=== PATIENT | female | born 1985 ===

== ENCOUNTER 2017-12-09 23:49 | Emergency (ER) | payer MEDICAID ==
[2017-12-10] MEDS ORDERED: Albuterol 0.083% 2.5 MG/3 ML Neb Soln NEB ONE (00:28)
--- NOTE | 2017-12-10 01:07 | EDM.PDOC ---
ED HPI GENERAL MEDICAL PROBLEM - General Chief Complaint: Respiratory Problem Stated Complaint: ASTHMA [id number] Time Seen by Provider: 12/10/17 00:15 Source of Information: Reports: Patient History Limitations: Reports: No Limitations - History of Present Illness INITIAL COMMENTS - FREE TEXT/NARRATIVE: This 31 yo female patient reports to the ED with increased shortness of breath. The patient reports that she has asthma and last took her inhaler this morning, but ran out. The patient reports that her chest feels tight. Onset: Today Onset Date: 12/09/17 Duration: Constant Location: Reports: Chest Quality: Reports: Other (tightness) Severity: Moderate Improves with: Reports: None Worsens with: Reports: None Associated Symptoms: Reports: Shortness of Breath Chest Pain Score (Numeric/FACES): 7 - Related Data Allergies Allergy/AdvReac Type Severity Reaction Status Date / Time No Known Allergies Allergy Verified 12/10/17 00:15 Home Meds: Home Meds Albuterol [Ventolin HFA] 2 puff INH BID PRN 12/10/17 [History] Past Medical History Respiratory History: Reports: Asthma Social & Family History - Family History Family Medical History: Noncontributory - Tobacco Use Smoking Status *Q: Current Every Day Smoker Years of Tobacco use: 10 Packs/Tins Daily: 1 - Caffeine Use Caffeine Use: Reports: Energy Drinks - Recreational Drug Use Recreational Drug Use: Yes Recreational Drug Type: Reports: Marijuana/Hashish Recreational Drug Use Frequency: Socially ED ROS GENERAL - Review of Systems Review Of Systems: ROS reveals no pertinent complaints other than HPI. ED EXAM, GENERAL - Physical Exam Exam: See Below Free Text/Narrative:: After receiving the nursing report, an order was placed for the patient to get an albuterol nebulizer treatment. The patient reported that she was feeling better after the treatment. The patient then asked if she could "run out to get her keys from her room mate". The patient did not return to the ED for assessment or further treatment. Exam Limited By: No Limitations General Appearance: Alert, WD/WN, Moderate Distress Course - Vital Signs Last Recorded V/S: Last Vital Signs Temp 37.3 C 12/10/17 00:16 Pulse 100 12/10/17 00:16 Resp 22 H 12/10/17 00:16 BP 132/91 H 12/10/17 00:16 Pulse Ox 99 12/10/17 00:16 - Orders/Labs/Meds Orders: Active Orders 24 hr Category Date Time Status RT Aerosol Therapy [RC] ASDIRECTED Care 12/10/17 00:28 Ordered Meds: Medications Discontinued Medications Generic Name Dose Route Start Last Admin Trade Name Susie PRN Reason Stop Dose Admin Albuterol 2.5 mg 12/10/17 00:28 12/10/17 00:33 Proventil Neb Soln NEB 12/10/17 00:29 2.5 mg ONETIME ONE Administration Departure - Departure Time of Disposition: 01:05 Disposition: Eloped 07 Condition: Undetermined Clinical Impression: Exacerbation of asthma Qualifiers: Asthma severity: moderate Asthma persistence: persistent Qualified Code(s): J45.41 - Moderate persistent asthma with (acute) exacerbation - Discharge Information Care Plan Goals: After the patient got a nebulized albuterol treatment, the patient asked to go out to get her keys from her room mate, but did not return to the ED for further assessment or treatment. - My Orders Last 24 Hours: My Active Orders 12/10/17 00:28 RT Aerosol Therapy [RC] ASDIRECTED - Assessment/Plan Last 24 Hours: My Active Orders 12/10/17 00:28 RT Aerosol Therapy [RC] ASDIRECTED
== END 2017-12-10 00:48 | disposition left against medical advice (07) ==
LOC: DL.ED 23:49
DX: J45.41 Moderate persistent asthma with (acute) exacerbation (principal); F17.210 Nicotine dependence, cigarettes, uncomplicated
CPT/HCPCS: 99284; J7620